=== PATIENT | female | born 1955 | race Caucasian/White ===

== ENCOUNTER 2020-02-21 22:33 | Emergency (ER) | payer OTHER ==
[~2020-02-21] VITALS: Ht 166.4 cm; Wt 63.5 kg
--- NOTE | 2020-02-21 22:35 | NUR ---
PT AAOX4. BIBFAMILY C/O DIZZINESS, HEADACHE, NECK PAIN WITH N/V SINCE YESTERDAY. NO ACUTE DISTRESS NOTED. PT STATED SHE USUALLY HAS HEADACHES BUT "TAKES CARE OF THEM EASILY." MD AT BEDSIDE FOR EVAL. AWAITING ORDERS.
[2020-02-21] MEDS ORDERED: ONDANSETRON HCL/PF 4 MG/2 ML VIAL ONE (22:55)
[2020-02-21] MEDS ORDERED: diphenhydrAMINE HCL 50 MG/ML VIAL ONE (22:55)
[2020-02-21] MEDS ORDERED: METOCLOPRAMIDE HCL 10 MG/2 ML VIAL ONE (22:56)
[2020-02-21] MEDS ORDERED: MORPHINE SULFATE INJ 4 MG/ML DISP.SYRIN ONE (22:56)
[2020-02-21] MEDS: MORPHINE SULFATE INJ 2 MG/ML DISP.SYRIN IV ONE (23:00)
[2020-02-21] MEDS: IV NS 0.9% 1,000 ML BAG IV ONE (23:00)
[2020-02-21] MEDS: diphenhydrAMINE HCL 50 MG/ML VIAL IV ONE (23:00)
[2020-02-21] MEDS: ONDANSETRON HCL/PF 4 MG/2 ML VIAL IVP ONE (23:00)
[2020-02-21] MEDS: METOCLOPRAMIDE HCL 10 MG/2 ML VIAL IV ONE (23:00)
[2020-02-21 23:13] LABS: BASOPHILS % (AUTO) 0.7 % (0.0-2.0); EOSINOPHILS % (AUTO) 0.5 % (0.0-6.0); HEMATOCRIT 41 % (33-45); HEMOGLOBIN 13.8 g/dL (11.5-14.8); LYMPHOCYTES # (AUTO) 0.9 /CMM (0.8-4.8); LYMPHOCYTES % (AUTO) 19.3 % (20.0-44.0); MEAN CORPUSCULAR HGB CONC 33 g/dl (31.0-36.0); MEAN CORPUSCULAR VOLUME 95 fL (82-100); MONOCYTES # (AUTO) 0.3 /CMM (0.1-1.30); MONOCYTES % (AUTO) 5.8 % (2.0-12.0); NEUTROPHILS # (AUTO) 3.6 /CMM (1.8-8.9); NEUTROPHILS % (AUTO) 73.7 % (43.0-81.0); PLATELET COUNT (AUTO) 198 /CMM (150-450); RED BLOOD CELL COUNT(AUTO) 4.37 MIL/uL (4.0-5.2); WHITE BLOOD COUNT (AUTO) 4.9 K/uL (4.3-11.0)
[2020-02-21 23:20] LABS: CALCIUM, SERUM 9.5 mg/dL (8.5-10.1); CARBON DIOXIDE 29 mmol/L (21-32); CHLORIDE 103 mmol/L (98-107); GLUCOSE 213 mg/dL (74-106); POTASSIUM 4.4 mmol/L (3.5-5.1); SODIUM SERUM 139 mmol/L (136-145); UREA NITROGEN, BLOOD 18 mg/dL (7-18)
--- NOTE | 2020-02-21 23:22 | NUR ---
PT MEDICATED. BROUGHT TO CT.
[2020-02-21 23:26] LABS: ALANINE AMINOTRANSFERASE 31 U/L (12-78); ALBUMIN 4.1 g/dL (3.4-5.0); ALKALINE PHOSPHATASE 78 U/L (46-116); ASPARTATE AMINOTRANSFERASE 12 U/L (15-37); BILIRUBIN,DIRECT 0.1 mg/dL (0.0-0.2); BILIRUBIN,TOTAL 0.4 mg/dL (0.2-1.0); TOTAL PROTEIN, SERUM 7.3 g/dL (6.4-8.2)
--- NOTE | 2020-02-21 23:46 | NUR ---
AMBULATED TO THE RESTROOM
--- NOTE | 2020-02-22 00:07 | NUR ---
IV removed. Catheter intact and site benign. Pressure and 4x4 applied to site. No bleeding noted.
--- NOTE | 2020-02-22 00:15 | NUR ---
Patient discharged to home in stable condition. Written and verbal after care instructions given. Patient verbalizes understanding of instruction and RX. Pt ambulated with steady gait. Picked up by family.
[2020-02-22 00:16] VITALS: BP 128/68
== END 2020-02-22 00:16 | disposition home or self-care (01) ==
LOC: ER 22:33
DX: G43.909 Migraine, unspecified, not intractable, without status migrainosus (principal); R11.2 Nausea with vomiting, unspecified; R42 Dizziness and giddiness; Z88.0 Allergy status to penicillin
CPT/HCPCS: 36415; 70450; 80048; 80076; 84484; 85025; 96361; 96374; 96375; 99284; J1200; J2270; J2405; J2765; J7030

== ENCOUNTER 2020-07-26 19:26 | Emergency (ER) | payer BC, OTHER ==
[~2020-07-26] VITALS: Ht 166.4 cm; Wt 63.5 kg
[2020-07-26] MEDS ORDERED: diphenhydrAMINE HCL 50 MG/ML VIAL IV ONE (21:00)
[2020-07-26] MEDS ORDERED: MORPHINE SULFATE INJ 2 MG/ML DISP.SYRIN IV ONE (21:00)
[2020-07-26] MEDS ORDERED: METOCLOPRAMIDE HCL 10 MG/2 ML VIAL IV ONE (21:00)
[2020-07-26] MEDS ORDERED: IV NS 0.9% 250 ML BAG IV ONE (21:00)
--- NOTE | 2020-07-26 21:05 | NUR ---
TO ER BED 21 AMBULATORY C/O FLU LIKE SYMPTOM X2 WEEK. PT C/O FEVER, CHILLS, FATIGUE, HEADACHE, DIZZINESS AND NAUSEA. PLACE PT ON CARDIAC MONITORING, CONTINUOUS POX. PT WAS SEEN AND EVALUATED BY ER STORE STOCK ASSOCIATE ELLI. WILL CARRY OUT ORDERS.
[2020-07-26] MEDS ORDERED: METOCLOPRAMIDE HCL 10 MG/2 ML VIAL ONE (21:36)
[2020-07-26] MEDS ORDERED: diphenhydrAMINE HCL 50 MG/ML VIAL ONE (21:36)
[2020-07-26] MEDS ORDERED: MORPHINE SULFATE INJ 4 MG/ML DISP.SYRIN ONE (21:36)
--- NOTE | 2020-07-26 21:38 | NUR ---
ELLI OPHTHALMIC TECHNICIAN AT BEDSIDE TO RE-EVAL PT.
[2020-07-26 21:39] LABS: MONOCYTES # (AUTO) 0.1 /CMM (0.1-1.30); NEUTROPHILS # (AUTO) 3.1 /CMM (1.8-8.9); RED BLOOD CELL COUNT(AUTO) 3.78 MIL/uL (4.0-5.2)
--- NOTE | 2020-07-26 21:42 | NUR ---
pt medicated as ordered.
[2020-07-26 21:43] LABS: BASOPHILS % (AUTO) 0.3 % (0.0-2.0); HEMATOCRIT 35 % (33-45); LYMPHOCYTES # (AUTO) 0.4 /CMM (0.8-4.8); LYMPHOCYTES % (AUTO) 10.7 % (20.0-44.0); MEAN CORPUSCULAR HGB CONC 34 g/dl (31.0-36.0); MEAN CORPUSCULAR VOLUME 93 fL (82-100); MONOCYTES % (AUTO) 3.9 % (2.0-12.0); NEUTROPHILS % (AUTO) 85.1 % (43.0-81.0); PLATELET COUNT (AUTO) 178 /CMM (150-450); WHITE BLOOD COUNT (AUTO) 3.6 K/uL (4.3-11.0)
[2020-07-26 21:48] LABS: CARBON DIOXIDE 27 mmol/L (21-32); CHLORIDE 97 mmol/L (98-107); CREATININE 1.1 mg/dL (0.6-1.3); GLUCOSE 240 mg/dL (74-106); POTASSIUM 3.3 mmol/L (3.5-5.1); SODIUM SERUM 135 mmol/L (136-145); UREA NITROGEN, BLOOD 23 mg/dL (7-18)
[2020-07-26 22:02] LABS: ALANINE AMINOTRANSFERASE 39 U/L (12-78); ALBUMIN 2.9 g/dL (3.4-5.0); ALKALINE PHOSPHATASE 89 U/L (46-116); ASPARTATE AMINOTRANSFERASE 37 U/L (15-37); B-TYPE NATRIURETIC PEPTIDE 1599 PG/ML (0-125); BILIRUBIN,TOTAL 0.5 mg/dL (0.2-1.0); TOTAL PROTEIN, SERUM 6.6 g/dL (6.4-8.2)
--- NOTE | 2020-07-26 22:07 | NUR ---
PT TRANSPORTED TO RADIOLOGY FOR CT HEAD.
[2020-07-26] MEDS ORDERED: APIXABAN 5 MG TABLET PO ONE (22:30)
[2020-07-26] MEDS ORDERED: METOPROLOL TARTRATE 25 MG TABLET PO ONE (22:30)
[2020-07-26] MEDS ORDERED: DEXAMETHASONE SOD PHOSPHATE 10 MG/ML VIAL IV ONE (22:30)
[2020-07-26] MEDS ORDERED: METOPROLOL TARTRATE 25 MG TABLET ONE (22:45)
[2020-07-26] MEDS ORDERED: DEXAMETHASONE SOD PHOSPHATE 10 MG/ML VIAL ONE (22:45)
--- NOTE | 2020-07-26 23:00 | NUR ---
IV removed. Catheter intact and site benign. Pressure and 4x4 applied to site. No bleeding noted. Patient discharged to home in stable condition. Written and verbal after care instructions given. Patient verbalizes understanding of instruction. ambulatory with a steady gait noted. pt aaox4 no acute distress noted, resp even and unlabored. pt denies pain or discomfort at this time.
[2020-07-26 23:01] VITALS: BP 145/79
== END 2020-07-26 23:02 | disposition home or self-care (01) ==
LOC: ER 19:32
DX: U07.1 COVID-19 (principal); J12.89 Other viral pneumonia; G43.909 Migraine, unspecified, not intractable, without status migrainosus; I48.91 Unspecified atrial fibrillation; R73.03 Prediabetes; Z88.0 Allergy status to penicillin
CPT/HCPCS: 36415; 70450; 71045; 80053; 83605; 83880; 84145; 84484; 85025; 85730; 87040 ×2; 87426; 93005; 96374; 96375; 99285; C9803; J1100; J1200; J2270; J2765; J7050; U0003